=== PATIENT | male | born 1960 | race Caucasian/White ===

== ENCOUNTER → 2016-10-25 | Day surgery (SDC) | payer OTHER ==
[~2016-10-25] MED LIST: ASPI325T; ATOR10; BENI40TA30; BYETTA; DEXAMETHASONE SOD PHOS 4 MG/ML VIAL ONE; DEXTROSE 50% IN WATER 50 ML SYRINGE ONE; EPINEPHrine HCL (1:1000) 1 MG/ML VIAL ONE; FISH500C; MIDAZOLAM HCL 2 MG/2 ML VIAL ONE; MOXIFLOXACIN 0.5% OPHT SOLN 3 ML BTL ONE; ONDANSETRON HCL 4 MG/2 ML VIAL IV PUSH ONE; PHENYLEPHRINE HCL 10% OPTH SOLN 5 ML BTL ONE; PROPOFOL 200 MG/20 ML AMP IV ONE; SODIUM CHLORIDE 0.9% INJ 10 ML ONE; TETRACAINE 0.5% OPTH SOLN 15 ML BTL ONE; TOBRAMYCIN/DEXAMETHASONE OPTH OINT 3.5 GM TUBE ONE; WELL150T; [UNRECOGNIZED DRUG - OTHER]; ceFAZolin INJ 1,000 MG VIAL ONE; prednisoLONE ACETATE 1% OPHT SUSP 5 ML BTL ONE
--- NOTE | 2016-10-25 14:30 | MP ---
cc: ELIJAH PATEL MD DATE OF SURGERY: 10/25/2016 PREOPERATIVE DIAGNOSIS: Multiple large vitreous opacities, right eye, Vitreous retraction right eye. POSTOPERATIVE DIAGNOSIS: Multiple large vitreous opacities, right eye, Vitreous retraction right eye. OPERATION: Pars vitrectomy, endolaser, right eye. COMPLICATIONS None BLOOD LOSS Less then [address] Tran, general INDICATIONS The procedures delightful patient with past significant visual obscuration's and difficulty with daily function secondary to large and multiple vitreous opacities of his right eye. The patient first allow time for interrupted adaptation but was unable to cope with this current condition and decided for surgical removal of the opacities. The patient understands risks, benefits alternatives. PROCEDURE NOTE Informed consent was obtained, the patient brought to operating room general anesthesia was established. The right eye was prepped and draped in sterile fashion with Betadine in the conjunctival fornix. A 3 port pars plana vitrectomy was established with self-retaining infusion cannula. The core vitreous was evacuated and the large multiple vitreous opacities were removed. Vitreous traction was also relieved. Some areas of retinal thinning were noted in the periphery and treated with endolaser. Scleral depression examination revealed no untreated retinal holes, tears or detachments. Trocars removed and sclerotomies closed. Subconjunctival injection of Ancef dexamethasone were given. Eye was patched with Tobramycin ointment. The patient brought to recovery room in stable condition. Continue followup with [facility] for his postoperative care. MD VIVEK Ordoñez/adam /1:27 PM /2:05 PM YONG
== END | disposition home or self-care (01) ==
LOC: ESDC 08:26
PROVIDERS: ATTEND Ophthalmology
DX: H43.391 Other vitreous opacities, right eye (principal); H43.811 Vitreous degeneration, right eye; E11.9 Type 2 diabetes mellitus without complications; Z79.4 Long term (current) use of insulin
CPT/HCPCS: 00145; 67039; 82948; J0171; J0690; J1100; J2250; J2405; J3010

== ENCOUNTER 2017-01-04 22:54 | Emergency (ER) | payer OTHER ==
[~2017-01-04] VITALS: Ht 172.7 cm; Wt 111.0 kg
[~2017-01-04 22:54] MED LIST changes: -DEXAMETHASONE SOD PHOS 4 MG/ML VIAL ONE; -DEXTROSE 50% IN WATER 50 ML SYRINGE ONE; -EPINEPHrine HCL (1:1000) 1 MG/ML VIAL ONE; -MIDAZOLAM HCL 2 MG/2 ML VIAL ONE; -MOXIFLOXACIN 0.5% OPHT SOLN 3 ML BTL ONE; -ONDANSETRON HCL 4 MG/2 ML VIAL IV PUSH ONE; -PHENYLEPHRINE HCL 10% OPTH SOLN 5 ML BTL ONE; -PROPOFOL 200 MG/20 ML AMP IV ONE; -SODIUM CHLORIDE 0.9% INJ 10 ML ONE; -TETRACAINE 0.5% OPTH SOLN 15 ML BTL ONE; -TOBRAMYCIN/DEXAMETHASONE OPTH OINT 3.5 GM TUBE ONE; -ceFAZolin INJ 1,000 MG VIAL ONE; -prednisoLONE ACETATE 1% OPHT SUSP 5 ML BTL ONE
[2017-01-04 23:09] VITALS: BP 190/95; PULSE 111; RESP 18; TEMP 97.9; O2SAT 95
[2017-01-04] MEDS ORDERED: INSU1INJ14 SQ (23:15)
[2017-01-04] MEDS ORDERED: HYPERTENTION (23:15)
[2017-01-04] MEDS ORDERED: CETI10CA3 (23:15)
[2017-01-04] MEDS ORDERED: METF1000 PO (23:15)
[2017-01-04] MEDS ORDERED: NOVOLOGP2 SQ (23:15)
[2017-01-04] MEDS ORDERED: diphenhydrAMINE HCL 50 MG CAP PO ONE (23:45)
[2017-01-04] MEDS ORDERED: ACETAMINOPHEN 500 MG CPLT PO ONE (23:45)
[2017-01-04] MEDS ORDERED: ONDANSETRON ODT 4 MG TAB PO ONE (23:45)
--- NOTE | 2017-01-04 23:50 | PD ---
HPI Chief Complaint: Psychiatric Symptoms Time Seen by Provider: 23:40 Travel History International Travel<30 days: No Contact w/Intl Traveler<30days: No Traveled to known affect area: No History of Present Illness HPI Patient comes emergency Department under Law act for reportedly sending his daughter text message stating that he wants to kill himself. Patient states that he had a bad day and wrote a letter to his and kids but has no intentions or plans of harming himself. Patient denies any history of suicidal attempts. Patient only medical concerns currently feels like he started getting a migraine headache. Patient reports history of these states that he typically takes Excedrin for them. States this feels like his typical migraine early-onset. Denies any nausea, vomiting, chest pain, fevers, shortness of breath, numbness or tingling or, back pain, loss or change in bowel or bladder, weakness, or vision changes. Denies anything making symptoms better or worse. PFSH Past Medical History Blood Disorders: No Cancer: No High Cholesterol: Yes Diabetes: Yes Patient Takes Glucophage: Yes Endocrine: Yes Gastrointestinal Disorders: No Headaches: Yes Hypertension: Yes Immune Disorder: No Kidney Stones: Yes Neurologic: Yes Psychiatric: No Reproductive: No Past Surgical History Eye Surgery: Yes (R. RETINA ) Social History Alcohol Use: Yes Tobacco Use: No Substance Use: No Allergies-Medications (Allergen,Severity, Reaction): Coded Allergies: No Known Allergies (Verified Allergy, Severe, 01/04/17) Reported Meds & Prescriptions Reported Meds & Active Scripts Active Reported Zyrtec (Cetirizine HCl) Unknown Strength Capsule Unknown Dose [Hypertention] Tresiba Flextouch Pen Inj (Insulin Degludec Inj) Unknown Strength Pen Unknown Dose SQ TID Novolog Inj (Insulin Aspart) 1,000 Unit/10 Ml Vial 0 SQ DIRECTED Sliding Scale as directed. Metformin (Metformin HCl) Unknown Strength Tab Unknown Dose PO BIDPC Review of Systems Except as stated in HPI: all other systems reviewed are Neg Physical Exam Narrative GENERAL: Well-developed, overly nourished, in no acute distress, and non-ill appearing. SKIN: Focused skin assessment warm and dry. HEAD: Atraumatic. Normocephalic. EYES: Pupils equal and round. EOMI. No scleral icterus. No injection or drainage. ENT: No nasal bleeding or discharge. Mucous membranes pink and moist. NECK: Trachea midline. Supple. No nuclear rigidity. CARDIOVASCULAR: Regular rate and rhythm. No murmur appreciated. RESPIRATORY: No accessory muscle use. No respiratory distress. Clear to auscultation. Breath sounds equal bilaterally. MUSCULOSKELETAL: No obvious deformities. No clubbing. No cyanosis. No edema. Full range of motion. NEUROLOGICAL: Awake and alert. No obvious cranial nerve deficits. Motor grossly within normal limits. Normal speech. Normal gait. PSYCHIATRIC: Appropriate mood and affect; insight and judgment normal. Data Data Last Documented VS Vital Signs Date Time Temp Pulse Resp B/P (MAP) Pulse Ox O2 Delivery O2 Flow Rate FiO2 01/04/17 23:09 97.9 111 18 190/95 (126) 95 Orders Orders Complete Blood Count With Diff (01/04/17 23:40) Comprehensive Metabolic Panel (01/04/17 23:40) Psych Screen (01/04/17 23:40) Drug Screen, Random Urine (01/04/17 23:40) Alcohol (Ethanol) (01/04/17 23:40) Salicylates (Aspirin) (01/04/17 23:40) Tylenol (Acetaminophen) (01/04/17 23:40) Ondansetron Odt (Zofran Odt) (01/04/17 23:45) Acetaminophen (Tylenol) (01/04/17 23:45) Diphenhydramine (Benadryl) (01/04/17 23:45) Labs Laboratory Tests Test 01/05/17 00:00 White Blood Count 9.3 TH/MM3 Red Blood Count 5.33 MIL/MM3 Hemoglobin 15.2 GM/DL Hematocrit 45.3 % Mean Corpuscular Volume 84.9 FL Mean Corpuscular Hemoglobin 28.5 PG Mean Corpuscular Hemoglobin Concent 33.5 % Red Cell Distribution Width 14.5 % Platelet Count 268 TH/MM3 Mean Platelet Volume 8.4 FL Neutrophils (%) (Auto) 63.0 % Lymphocytes (%) (Auto) 26.3 % Monocytes (%) (Auto) 8.6 % Eosinophils (%) (Auto) 1.3 % Basophils (%) (Auto) 0.8 % Neutrophils # (Auto) 5.9 TH/MM3 Lymphocytes # (Auto) 2.4 TH/MM3 Monocytes # (Auto) 0.8 TH/MM3 Eosinophils # (Auto) 0.1 TH/MM3 Basophils # (Auto) 0.1 TH/MM3 CBC Comment DIFF FINAL Differential Comment Blood Urea Nitrogen 16 MG/DL Creatinine 1.38 MG/DL Random Glucose 444 MG/DL Total Protein 7.8 GM/DL Albumin 3.9 GM/DL Calcium Level 9.1 MG/DL Alkaline Phosphatase 85 U/L Aspartate Amino Transf (AST/SGOT) 28 U/L Alanine Aminotransferase (ALT/SGPT) 36 U/L Total Bilirubin 0.5 MG/DL Sodium Level 136 MEQ/L Potassium Level 4.0 MEQ/L Chloride Level 99 MEQ/L Carbon Dioxide Level 23.6 MEQ/L Anion Gap 13 MEQ/L Estimat Glomerular Filtration Rate 53 ML/MIN Salicylates Level LESS THAN 1.7 MG/DL Urine Opiates Screen NEG Acetaminophen Level LESS THAN 2.0 MCG/ML Urine Barbiturates Screen NEG Urine Amphetamines Screen NEG Urine Benzodiazepines Screen NEG Urine Cocaine Screen NEG Urine Cannabinoids Screen NEG Ethyl Alcohol Level LESS THAN 3 MG/DL MDM Medical Decision Making Medical Screen Exam Complete: Yes Emergency Medical Condition: Yes Differential Diagnosis Homicidal, suicidal, metabolic disturbance, migraine, depression, other Narrative Course Patient was seen and examined. Labs were obtained and reviewed. Patient is refusing any medication for his elevated blood sugar states he just wants to wait until he gets home to take his own medication. We'll encourage by mouth water to help bring down his blood sugars. Patient medically cleared for further treatment and evaluation by psych. Psychiatric evaluation was discussed with patient. Final disposition per psych. Diagnosis Primary Impression: Hyperglycemia due to type 1 diabetes mellitus Additional Impression: Medical clearance for psychiatric admission Condition: Stable Oswald Tran Jan 04, 2017 23:50
[2017-01-05 00:27] LABS: AUTOMATED NEUTROPHIL # 5.9 TH/MM3 (1.8-7.7); BASOPHIL # 0.1 TH/MM3 (0-0.2); BASOPHIL % 0.8 % (0.0-2.0); EOSINOPHIL # 0.1 TH/MM3 (0-0.4); EOSINOPHIL % 1.3 % (0.0-4.0); HEMATOCRIT 45.3 % (39.0-51.0); HEMO FLAGS DIFF FINAL; LYMPH % 26.3 % (9.0-44.0); LYMPHOCYTE # 2.4 TH/MM3 (1.0-4.8); MEAN CELL VOLUME 84.9 FL (80.0-100.0); MEAN CORPUSCULAR HEMOGLOBIN 28.5 PG (27.0-34.0); MEAN CORPUSCULAR HGB CONC 33.5 % (32.0-36.0); MONO % 8.6 % (0.0-8.0); PLATELET COUNT 268 TH/MM3 (150-450); RED BLOOD COUNT 5.33 MIL/MM3 (4.50-5.90); RED CELL DISTRIBUTION WIDTH 14.5 % (11.6-17.2); WHITE BLOOD COUNT 9.3 TH/MM3 (4.0-11.0)
[2017-01-05 01:04] LABS: ACETAMINOPHEN LESS THAN 2.0 MCG/ML (10.0-30.0); ALCOHOL LESS THAN 3 MG/DL (0-5); ALKALINE PHOSPHATASE 85 U/L (45-117); ALT (GPT) 36 U/L (12-78); ANION GAP 13 MEQ/L (5-15); AST (GOT) 28 U/L (15-37); BICARBONATE 23.6 MEQ/L (21.0-32.0); BLOOD UREA NITROGEN 16 MG/DL (7-18); CHLORIDE 99 MEQ/L (98-107); GLOMERULAR FILTRATION RATE 53 ML/MIN (>89); SODIUM (NA) 136 MEQ/L (136-145); TOTAL BILIRUBIN ADULT 0.5 MG/DL (0.2-1.0)
[2017-01-05 03:09] VITALS: BP 169/92; PULSE 103; RESP 16; TEMP 98.1; O2SAT 98
[2017-01-05 06:25] VITALS: BP 169/101; PULSE 99; RESP 16
--- NOTE | 2017-01-05 10:24 | PD ---
History of Present Illness Chief Complaint: Psychiatric Symptoms Time Seen by Provider: 10:15 Travel History International Travel<30 Days: No Contact w/Intl Traveler<30days: No Known affected area: No Legal Status Legal Status: Law Act Law Act Signed By: Khris Arellano History of Present Illness: 56-year-old male brought in under a Law act for making suicidal threats, writing suicidal messages and barricading himself in his bedroom. Patient is retired retail loan officer, very calm, pleasant and cooperative. He admits to having a bad day and has had multiple verbal altercations with his 27-year-old daughter. He describes his daughter's lifestyle as "Warren Rodriguez like" and yesterday he said and did the wrong things. He is adamantly denying any suicidal or homicidal ideation, plan or intent. He believes his will vouch for his safety even though he would not let her into their bedroom yesterday. He wants to inform this physician of his daughters erratic behavior and there is apparently a 4-year-old granddaughter involved. However, this physician repeatedly redirected the patient regarding his and his 's own role in this irrational lifestyle. Patient's excuse is that he loves his daughter. PFSH Past Medical History Blood Disorders: No Cancer: No High Cholesterol: Yes Diabetes: Yes Patient Takes Glucophage: Yes Endocrine: Yes Gastrointestinal Disorders: No Headaches: Yes Hypertension: Yes Immune Disorder: No Kidney Stones: Yes Neurologic: Yes Psychiatric: No Reproductive: No Past Surgical History Eye Surgery: Yes (R. RETINA ) Psychiatric History Psychiatric History Hx Psychiatric Treatment: PATIENT DENIES History of Inpatient Treatment: No Guns or firearms in home: Yes Social History Hx Alcohol Use: Yes Hx Tobacco Use: No Hx Substance Use: No Hx of Substance Use Treatment: No Allergies-Medications (Allergen,Severity, Reaction): Coded Allergies: No Known Allergies (Verified Allergy, Severe, 01/04/17) Reported Meds & Prescriptions Reported Meds & Active Scripts Active Reported Zyrtec (Cetirizine HCl) Unknown Strength Capsule Unknown Dose [Hypertention] Tresiba Flextouch Pen Inj (Insulin Degludec Inj) Unknown Strength Pen Unknown Dose SQ TID Novolog Inj (Insulin Aspart) 1,000 Unit/10 Ml Vial 0 SQ DIRECTED Sliding Scale as directed. Metformin (Metformin HCl) Unknown Strength Tab Unknown Dose PO BIDPC Review of Systems Except as stated in HPI: all other systems reviewed are Neg Mental Status Examination Appearance: Appropriate Consciousness: Alert Orientation: x4 Motor Activity: Normal gait Speech: Unremarkable Language: Adequate Fund of Knowledge: Adequate Attention and Concentration: Adequate Memory: Unremarkable Mood: Appropriate Affect: Appropriate Thought Process & Associations: Intact Thought Content: Appropriate Hallucination Type: None Delusion Type: None Suicidal Ideation: No Suicidal Plan: No Suicidal Intention: No Homicidal Ideation: No Homicidal Plan: No Homicidal Intention: No Insight: Adequate Judgment: Adequate MDM Medical Decision Making Medical Record Reviewed: Yes Assessment/Plan Patient interviewed at bedside, medical record reviewed and case discussed with nurse Yisel. Nurse is contacting patient's to vouch for his safety to return home. If agrees, patient will be discharged. If feels he is unsafe, patient will be admitted. Orders Orders Complete Blood Count With Diff (01/04/17 23:40) Comprehensive Metabolic Panel (01/04/17 23:40) Psych Screen (01/04/17 23:40) Drug Screen, Random Urine (01/04/17 23:40) Alcohol (Ethanol) (01/04/17 23:40) Salicylates (Aspirin) (01/04/17 23:40) Tylenol (Acetaminophen) (01/04/17 23:40) Ondansetron Odt (Zofran Odt) (01/04/17 23:45) Acetaminophen (Tylenol) (01/04/17 23:45) Diphenhydramine (Benadryl) (01/04/17 23:45) Blood Glucose (01/05/17 03:33) Diet Diabetic (01/05/17 Breakfast) Results Vital Signs Date Time Temp Pulse Resp B/P (MAP) Pulse Ox O2 Delivery O2 Flow Rate FiO2 01/05/17 06:25 99 16 169/101 (123) 01/05/17 03:09 98.1 103 16 169/92 (117) 98 Room Air 01/04/17 23:09 97.9 111 18 190/95 (126) 95 Laboratory Tests Test 01/05/17 00:00 White Blood Count 9.3 Red Blood Count 5.33 Hemoglobin 15.2 Hematocrit 45.3 Mean Corpuscular Volume 84.9 Mean Corpuscular Hemoglobin 28.5 Mean Corpuscular Hemoglobin Concent 33.5 Red Cell Distribution Width 14.5 Platelet Count 268 Mean Platelet Volume 8.4 Neutrophils (%) (Auto) 63.0 Lymphocytes (%) (Auto) 26.3 Monocytes (%) (Auto) 8.6 Eosinophils (%) (Auto) 1.3 Basophils (%) (Auto) 0.8 Neutrophils # (Auto) 5.9 Lymphocytes # (Auto) 2.4 Monocytes # (Auto) 0.8 Eosinophils # (Auto) 0.1 Basophils # (Auto) 0.1 CBC Comment DIFF FINAL Differential Comment Blood Urea Nitrogen 16 Creatinine 1.38 Random Glucose 444 Total Protein 7.8 Albumin 3.9 Calcium Level 9.1 Alkaline Phosphatase 85 Aspartate Amino Transf (AST/SGOT) 28 Alanine Aminotransferase (ALT/SGPT) 36 Total Bilirubin 0.5 Sodium Level 136 Potassium Level 4.0 Chloride Level 99 Carbon Dioxide Level 23.6 Anion Gap 13 Estimat Glomerular Filtration Rate 53 Salicylates Level LESS THAN 1.7 Urine Opiates Screen NEG Acetaminophen Level LESS THAN 2.0 Urine Barbiturates Screen NEG Urine Amphetamines Screen NEG Urine Benzodiazepines Screen NEG Urine Cocaine Screen NEG Urine Cannabinoids Screen NEG Ethyl Alcohol Level LESS THAN 3 Diagnosis Primary Impression: Adjustment disorder with mixed disturbance of emotions and conduct Condition: Stable David Hall MD Jan 05, 2017 10:24
--- NOTE | 2017-01-05 12:52 | PD ---
Physical Exam Date Seen by Provider: Jan 05, 2017 Time Seen by Provider: 12:47 Narrative 56-year-old known diabetic who was Law acted for suicidal ideation by text to his daughter, was medically cleared for psychiatric evaluation. Patient has been seen by the psychiatry staff deemed psychiatrically stable for discharge. Patient knows he is to treat his blood sugar when he returns to his home. He is refusing treatment here in the department. He is felt medically stable for discharge and instructed to treat his blood sugar when he returns home. Patient to follow with psychiatric services per their plan. Data Data Last Documented VS Vital Signs Date Time Temp Pulse Resp B/P (MAP) Pulse Ox O2 Delivery O2 Flow Rate FiO2 01/05/17 06:25 99 16 169/101 (123) 01/05/17 03:09 98.1 98 Room Air Orders Orders Complete Blood Count With Diff (01/04/17 23:40) Comprehensive Metabolic Panel (01/04/17 23:40) Psych Screen (01/04/17 23:40) Drug Screen, Random Urine (01/04/17 23:40) Alcohol (Ethanol) (01/04/17 23:40) Salicylates (Aspirin) (01/04/17 23:40) Tylenol (Acetaminophen) (01/04/17 23:40) Ondansetron Odt (Zofran Odt) (01/04/17 23:45) Acetaminophen (Tylenol) (01/04/17 23:45) Diphenhydramine (Benadryl) (01/04/17 23:45) Blood Glucose (01/05/17 03:33) Diet Diabetic (01/05/17 Breakfast) Diet Regular Basic (01/05/17 Lunch) Labs Laboratory Tests Test 01/05/17 00:00 White Blood Count 9.3 TH/MM3 Red Blood Count 5.33 MIL/MM3 Hemoglobin 15.2 GM/DL Hematocrit 45.3 % Mean Corpuscular Volume 84.9 FL Mean Corpuscular Hemoglobin 28.5 PG Mean Corpuscular Hemoglobin Concent 33.5 % Red Cell Distribution Width 14.5 % Platelet Count 268 TH/MM3 Mean Platelet Volume 8.4 FL Neutrophils (%) (Auto) 63.0 % Lymphocytes (%) (Auto) 26.3 % Monocytes (%) (Auto) 8.6 % Eosinophils (%) (Auto) 1.3 % Basophils (%) (Auto) 0.8 % Neutrophils # (Auto) 5.9 TH/MM3 Lymphocytes # (Auto) 2.4 TH/MM3 Monocytes # (Auto) 0.8 TH/MM3 Eosinophils # (Auto) 0.1 TH/MM3 Basophils # (Auto) 0.1 TH/MM3 CBC Comment DIFF FINAL Differential Comment Blood Urea Nitrogen 16 MG/DL Creatinine 1.38 MG/DL Random Glucose 444 MG/DL Total Protein 7.8 GM/DL Albumin 3.9 GM/DL Calcium Level 9.1 MG/DL Alkaline Phosphatase 85 U/L Aspartate Amino Transf (AST/SGOT) 28 U/L Alanine Aminotransferase (ALT/SGPT) 36 U/L Total Bilirubin 0.5 MG/DL Sodium Level 136 MEQ/L Potassium Level 4.0 MEQ/L Chloride Level 99 MEQ/L Carbon Dioxide Level 23.6 MEQ/L Anion Gap 13 MEQ/L Estimat Glomerular Filtration Rate 53 ML/MIN Salicylates Level LESS THAN 1.7 MG/DL Urine Opiates Screen NEG Acetaminophen Level LESS THAN 2.0 MCG/ML Urine Barbiturates Screen NEG Urine Amphetamines Screen NEG Urine Benzodiazepines Screen NEG Urine Cocaine Screen NEG Urine Cannabinoids Screen NEG Ethyl Alcohol Level LESS THAN 3 MG/DL MDM Medical Record Reviewed: Yes Supervised Visit with HAZEL: Yes Differential Diagnosis 56-year-old known diabetic who was Law acted for suicidal ideation by text to his daughter, was medically cleared for psychiatric evaluation. Patient has been seen by the psychiatry staff deemed psychiatrically stable for discharge. Patient knows he is to treat his blood sugar when he returns to his home. He is refusing treatment here in the department. He is felt medically stable for discharge and instructed to treat his blood sugar when he returns home. Patient to follow with psychiatric services per their plan. Diagnosis Primary Impression: Adjustment disorder with mixed disturbance of emotions and conduct Additional Instruction: Patient has been seen by the psychiatry staff deemed psychiatrically stable for discharge. Patient knows he is to treat his blood sugar when he returns to his home. He is refusing treatment here in the department. He is felt medically stable for discharge and instructed to treat his blood sugar when he returns home. Patient to follow with psychiatric services per their plan. Med/Other Pt SpecificInfo: No Change to Meds Disposition: 01 DISCHARGE HOME Condition: Stable Ricardo Park Jan 05, 2017 12:52
== END 2017-01-05 13:05 | disposition home or self-care (01) ==
LOC: NEPD 22:54 → NEPJ 01-05 13:05
DX: F43.25 Adjustment disorder with mixed disturbance of emotions and conduct (principal); E11.9 Type 2 diabetes mellitus without complications; E78.00 Pure hypercholesterolemia, unspecified; I10 Essential (primary) hypertension; Z87.442 Personal history of urinary calculi; Z79.4 Long term (current) use of insulin; Z79.899 Other long term (current) drug therapy
CPT/HCPCS: 80053; 80307; 85025; 99284; Q0163